=== PATIENT | male | born 1990 | race Caucasian/White ===

== ENCOUNTER 2016-09-09 15:36 | Emergency (ER) | payer OTHER ==
[~2016-09-09] VITALS: Ht 185.4 cm; Wt 74.8 kg
[~2016-09-09 15:36] MED LIST: AUGMENTIN 875-875 MG PO; CLARITIN10 MG PO; FLONASE ALLERG9.9 ML NS; NORCO 5-325 TA1 EACH PO
== END 2016-09-09 17:39 | disposition home or self-care (01) ==
LOC: ED 15:36
DX: R20.0 Anesthesia of skin (principal)

== ENCOUNTER 2017-05-23 22:41 | Emergency (ER) | payer OTHER ==
[~2017-05-23] VITALS: Ht 180.3 cm; Wt 79.4 kg
== END 2017-05-24 00:43 | disposition home or self-care (01) ==
LOC: ED 22:41
DX: S90.32XA Contusion of left foot, initial encounter (principal); Z98.890 Other specified postprocedural states; W19.XXXA Unspecified fall, initial encounter; Y93.89 Activity, other specified; Y92.89 Other specified places as the place of occurrence of the external cause; Y99.9 Unspecified external cause status

== ENCOUNTER 2020-02-21 14:09 | Emergency (ER) | payer OTHER ==
[~2020-02-21] VITALS: Ht 180.3 cm; Wt 74.8 kg
== END 2020-02-21 15:27 | disposition home or self-care (01) ==
LOC: ED 14:09
DX: S01.511A Laceration without foreign body of lip, initial encounter (principal); X58.XXXA Exposure to other specified factors, initial encounter; Y93.89 Activity, other specified; Y92.89 Other specified places as the place of occurrence of the external cause; Y99.8 Other external cause status

== ENCOUNTER 2024-03-02 10:57 | Emergency (ER) | payer BC ==
[~2024-03-02] VITALS: Ht 180.3 cm; Wt 77.1 kg
[2024-03-02] MEDS ORDERED: Lidocaine Hydrochloride 2 ML AMP SC ONE (11:30)
[2024-03-02] MEDS ORDERED: Tdap Vaccine 0.5 ML SYR (Adult Vaccine) IM ONE (11:30)
== END 2024-03-02 12:00 | disposition home or self-care (01) ==
LOC: ED 10:57
DX: S01.111A Laceration without foreign body of right eyelid and periocular area, initial encounter (principal); F90.9 Attention-deficit hyperactivity disorder, unspecified type; Z98.890 Other specified postprocedural states; W22.8XXA Striking against or struck by other objects, initial encounter; Y93.89 Activity, other specified; Y92.89 Other specified places as the place of occurrence of the external cause; Y99.8 Other external cause status